=== PATIENT | female | born 1995 | race Hispanic/Latino ===

== ENCOUNTER 2021-04-01 16:55 | Emergency (ER) | payer MEDICAID, SELFPAY | END 2021-04-01 20:28 | disposition home or self-care (01) | LOC: CSHERS 16:55 | DX: Z34.91 Encounter for supervision of normal pregnancy, unspecified, first trimester (principal); Z3A.01 Less than 8 weeks gestation of pregnancy | CPT/HCPCS: 36415; 84702; 99283 ==

== ENCOUNTER 2021-11-21 08:46 | Outpatient (CLI) | payer OTHER | END 2021-11-21 08:47 | disposition home or self-care (01) | LOC: CSHLAB 08:46 | PROVIDERS: ATTEND Family Medicine | DX: Z01.812 Encounter for preprocedural laboratory examination (principal); Z20.822 Contact with and (suspected) exposure to COVID-19 | CPT/HCPCS: 36415; 85027; 86780; 86850; 86900; 86901; 87340; U0002 ==